=== PATIENT | female | born 2005 | race Two or more races ===

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

== ENCOUNTER 2024-08-11 20:56 | Emergency (ER) | payer MEDICAID ==
[~2024-08-11] VITALS: Ht 157.5 cm; Wt 89.8 kg
[2024-08-11] MEDS ORDERED: CEPH500C PO (23:05)
[2024-08-11] MEDS: cefTRIAXone SOD 1,000 MG VL IM ONE (23:12)
[2024-08-11 23:30] VITALS: BP 108/68; PULSE 73; RESP 18; TEMP 97.9; O2SAT 97
== END 2024-08-11 23:31 | disposition home or self-care (01) ==
LOC: ER 20:56
DX: S50.862A Insect bite (nonvenomous) of left forearm, initial encounter (principal); L08.9 Local infection of the skin and subcutaneous tissue, unspecified; W57.XXXA Bitten or stung by nonvenomous insect and other nonvenomous arthropods, initial encounter; Y93.89 Activity, other specified; Y92.89 Other specified places as the place of occurrence of the external cause; Y99.8 Other external cause status
CPT/HCPCS: 96372; 99283; J0696